=== PATIENT | female | born 1990 | race Caucasian/White ===

== ENCOUNTER → 2020-06-07 08:06 | Outpatient (BNVA) | payer MEDICAID, SELFPAY | PROVIDERS: PCP Family Medicine; Visit Provider Surgery | DX: E66.9 Obesity, unspecified (principal); Z68.36 Body mass index [BMI] 36.0-36.9, adult; Z71.3 Dietary counseling and surveillance | CPT/HCPCS: 99202 ==

== ENCOUNTER 2020-06-15 09:33 | Outpatient (REF) | payer MEDICAID, SELFPAY ==
--- NOTE | ~2020-06-15 | FL_ITS ---
EXAMINATION: XR GI SERIES CLINICAL INFORMATION: Obesity COMPARISON: None TECHNIQUE: Upper GI was performed using thin and thick barium and effervescent granules. FINDINGS: Esophageal motility is normal. There is significant gastroesophageal reflux. There is a small sliding-type hiatal hernia. There are postoperative changes following gastric bypass. The remaining stomach appears small. No ulcer or mass is seen. FLUOROSCOPY TIME: 1.1 minutes DOSE AREA PRODUCT: 15 hoang per centimeter squared. 22 saved fluoroscopic images. FL/FL upper GI series IMPRESSION: Postoperative change following gastric bypass. Significant gastroesophageal reflux. Small sliding-type hiatal hernia.
--- NOTE | ~2020-06-15 | US_ITS ---
EXAMINATION: CHEST X-RAY CLINICAL INFORMATION: Obesity COMPARISON: None TECHNIQUE: Two-view chest FINDINGS: The cardiac and mediastinal contours are normal. The lungs are clear. There is no pleural effusion or pneumothorax. Bony structures are normal. US/US abdomen comp w elastography IMPRESSION: Normal chest. EXAMINATION: US COMPLETE ABDOMEN WITH LIVER ELASTOGRAPHY CLINICAL INFORMATION: Obesity COMPARISON: None. TECHNIQUE: Real-time imaging of the abdominal viscera. Noninvasive ultrasound liver fibrosis assessment is performed using Wilfrido ElastPQ point quantification shear wave elastography (pSWE) with a 5 MHz transducer. Multiple elastography samples are obtained. FINDINGS: PANCREAS: Not well visualized due to bowel gas. ABDOMINAL AORTA: The proximal and distal aortic segments are normal in caliber. The mid abdominal aorta is not well visualized. INFERIOR VENA CAVA: Visualized portions are normal. LIVER: Liver echotexture is increased. The liver is normal in size and contour. No focal lesion or intrahepatic biliary duct dilatation. The right lobe measures 15 cm in length. The left lobe measures 10 cm in length. Main portal vein is patent with appropriate hepatopedal flow. Shear wave elastography provides a median stiffness of 1.3 m/s (reference: normal median stiffness is 0.81 - 1.22 m/s). The IQR/median stiffness to assess sampling precision is 0.12 (reference: optimal IQR/median stiffness is under 0.3). GALLBLADDER: Normal. The gallbladder is physiologically distended without evidence of stones, sludge, polyps, wall thickening or pericholecystic fluid. COMMON BILE DUCT: Normal in caliber measuring 0.3 cm in diameter. RIGHT KIDNEY: Normal. No hydronephrosis. No renal calculi or focal parenchymal lesions. The kidney measures 11 cm in maximum dimension. LEFT KIDNEY: Not well visualized. No hydronephrosis. No renal calculi or focal parenchymal lesions. The kidney measures 9.4 cm in maximum dimension. SPLEEN: Normal. The spleen measures 6.8 cm in maximum dimension. FREE FLUID: None. IMPRESSION: 1. Impression: Echogenic liver. Limited visualization of the pancreas, mid abdominal aorta and left kidney. 2. Elastography: High probability of normal liver stiffness.
--- NOTE | 2020-06-15 09:41 | ECG_ITS ---
Test Reason : MORBID OBESITY Blood Pressure : / mmHG Vent. Rate : 091 BPM Atrial Rate : 091 BPM P-R Int : 182 ms QRS Dur : 130 ms QT Int : 388 ms P-R-T Axes : 048 071 041 degrees QTc Int : 477 ms Normal sinus rhythm Right bundle branch block Abnormal ECG No previous ECGs available Referred By: Christopher Bey Electronically Signed By:ELTON CORREA MD
[2020-06-15 11:27] LABS: MANUAL DIFF FLAG NO
[2020-06-15 11:38] LABS: Basophils Percent Auto 0.5 % (0-2); Eosinophils Absolute Auto 0.1 X10*3/uL (0.0-0.4); Eosinophils Percent Auto 0.6 % (0-4); Hematocrit 31.9 % (37-47); Hemoglobin 9.4 g/dl (12.0-16.0); Imm Gran Abs Auto 0.03 X10*3/uL (0.00-0.03); Imm Gran Pct Auto 0.4 % (0.0-0.4); Lymphocytes Absolute Auto 2.5 X10*3/uL (1.2-4.9); Lymphocytes Percent Auto 32.6 % (20-40); Mean Corpuscular HGB Conc 29.5 g/dl (31.0-35.0); Mean Corpuscular Hemoglobin 24.2 pg (27.0-33.0); Mean Platelet Volume 9.9 fL (9.4-12.3); Monocytes Absolute Auto 0.5 X10*3/uL (0.1-1.2); Monocytes Percent Auto 6.3 % (2-11); Neutrophils Absolute Auto 4.6 X10*3/uL (2.0-8.3); Neutrophils Percent Auto 59.6 % (45-73); Platelet Count 403 X10*3/uL (160-400); Red Blood Count 3.89 X10*6/uL (4.20-5.50); Red Cell Distribution Width 16.1 % (11.0-16.0); White Blood Count 7.8 X10*3/uL (4.8-10.8)
[2020-06-15 11:41] LABS: Estimated Average Glucose 100 mg/dL; Hemoglobin A1c % 5.1 %
[2020-06-15 11:52] LABS: Alanine Aminotransferase 13 U/L (0-31); Albumin Level 4.4 g/dL (3.5-5.0); Alkaline Phosphatase 73 U/L (39-117); Anion Gap 14 (12-20); Aspartate Amino Transferase 21 U/L (5-31); Bilirubin Total 0.5 mg/dL (0.0-1.0); Blood Urea Nitrogen 18 mg/dL (9-16); C Reactive Protein 0.03 mg/dL (< or = 0.50); Calcium 8.6 mg/dL (8.4-10.2); Carbon Dioxide 25 mmol/L (22-29); Chloride 109 mmol/L (96-108); Cholesterol 295 mg/dL; Estimated Glomerular Filt Rate > 60; Glucose Random 95 mg/dL (60-115); HDL Cholesterol 67 mg/dL; LDL Cholesterol Calculated 210 mg/dl; Potassium 4.5 mmol/L (3.3-5.1); Sodium 143 mmol/L (135-145); Total Protein 7.8 g/dL (6.5-8.0); Triglycerides 93 mg/dL
[2020-06-15 12:13] LABS: Ferritin 4 ng/mL (10-122); TSH reflex Free T4 1.82 uIU/mL (0.32-4.0); Vitamin D 25-OH Total 6.9 ng/mL (>30)
[2020-06-15 12:31] LABS: Vitamin B12 < 146 pg/mL (200-900)
[2020-06-16 15:01] LABS: H Pylori Breath Test NOT DETECTED (NOT DETECTED)
[2020-06-16 15:01] LABS: Calcium (PTHI) 9.3 mg/dL (8.6-10.2); PTHI 121 pg/mL (14-64)
[2020-06-16 18:12] LABS: Insulin Level Total 6.5 uIU/mL
[2020-06-18 01:52] LABS: Zinc 76 mcg/dL (60-130)
[2020-06-19 12:16] LABS: Vitamin A 37 mcg/dL (38-98)
[2020-06-19 13:06] LABS: Vitamin B1 11 nmol/L (8-30)
== END 2020-06-15 09:34 | disposition home or self-care (01) ==
LOC: HO.US 09:33
PROVIDERS: Referring Provider Physician Assistant; Visit Provider Surgery
DX: Z01.818 Encounter for other preprocedural examination (principal); E66.01 Morbid (severe) obesity due to excess calories; Z68.36 Body mass index [BMI] 36.0-36.9, adult; K21.9 Gastro-esophageal reflux disease without esophagitis
CPT/HCPCS: 36415; 71046; 74240; 76705; 76981; 80053; 80061; 82306; 82607; 82728; 82746; 83013; 83036; 83525; 83970; 84425; 84443; 84590; 84630; 85025; 86140; 93005; 99211

== ENCOUNTER 2020-06-29 09:25 | Outpatient (REF) | payer MEDICAID, SELFPAY | END 2020-06-29 09:26 | disposition home or self-care (01) | LOC: HO.CT 09:25 | PROVIDERS: Visit Provider Surgery | DX: Z13.89 Encounter for screening for other disorder (principal) ==

== ENCOUNTER 2020-06-29 09:44 | Day surgery (SDC) | payer MEDICAID, SELFPAY ==
[2020-06-22 11:52] VITALS: BMI 36.3
--- NOTE | 2020-06-24 14:38 | HO.ANESPROP2 ---
Documented by User: Brittney Lemon 06/24/20 14:39 HPI - Anesthesia Eval Consult details Narrative: 30yo F for Upper Endoscopy s/p gastric bypass PMFSH Active Problems Active Problems: All Active Problems (Updated 06/22/20 @ 13:52 by Heather Cazares LCSW) Adjustment disorder, unspecified (Acute) Preop testing (Acute) Anxiety (Acute) Back pain (Acute) BMI 36.0-36.9,adult (Acute) Obesity (Acute) Past Medical History Medical History Anxiety Back pain Family History Family History Mother Hypertension Stroke Father No problems noted. Brother No problems noted. Brother No problems noted. Brother No problems noted. Brother No problems noted. Sister No problems noted. Sister No problems noted. Daughter No problems noted. Surgical History Surgical History Hx of gastric bypass S/P panniculectomy Social History Social History Alcohol intake: never Smoking Status: Never smoker Use of substances other than those prescribed or required for medical reasons: No Advance Directives Information Provided: No Meds Allergies Allergy/AdvReac Type Severity Reaction Status Date / Time No Known Allergies Allergy Verified 06/07/20 14:24 Home Medications Medication Instructions Recorded Confirmed Last Taken Type melatonin 3 mg capsule 3 mg PO BEDTIME PRN 06/07/20 06/22/20 Unknown History Exam Exam Date and Time: June 24, 2020 1438 Height,Weight and Vital Signs: Height 5 ft 4.5 in Weight 97.579 kg Narrative Narrative: EKG 06/2020 Vent. Rate : 091 BPM Atrial Rate : 091 BPM P-R Int : 182 ms QRS Dur : 130 ms QT Int : 388 ms P-R-T Axes : 048 071 041 degrees QTc Int : 477 ms Normal sinus rhythm Right bundle branch block Abnormal ECG No previous ECGs available Assessment and Plan Assessment Anesthesia Assessment: Chart Reviewed Documented by User: Santiago Vanegas 06/29/20 12:29 PMFSH Past Medical History Medical History Anxiety Back pain Family History Family History Mother Hypertension Stroke Father No problems noted. Brother No problems noted. Brother No problems noted. Brother No problems noted. Brother No problems noted. Sister No problems noted. Sister No problems noted. Daughter No problems noted. Surgical History Surgical History Hx of gastric bypass S/P panniculectomy Social History Social History Alcohol intake: never Smoking Status: Never smoker Use of substances other than those prescribed or required for medical reasons: No Advance Directives Information Provided: No Meds Allergies Allergy/AdvReac Type Severity Reaction Status Date / Time No Known Allergies Allergy Verified 06/07/20 14:24 Home Medications Medication Instructions Recorded Confirmed Last Taken Type melatonin 3 mg capsule 3 mg PO BEDTIME PRN 06/07/20 06/22/20 Unknown History Exam Airway Mallampati Class: II TM Dist: >3cm Neck ROM: Full
--- NOTE | 2020-06-28 22:37 | MHC.SHP ---
Pre-Procedural Eval Section A The patient is an INPATIENT: No The History & Physical has been completed within 30 days and I have reviewed it.: Yes Section B Chief Complaint: bariatric surgery Details of Present Illness: GERD Relevant Family History (Specify if Yes): No Relevant Social History: None Present Medications: see Short Stay Collaborative assessment History of Previous Operations: Relevant previous surgery/procedure and date(s) (gastric bypass) Allergies: Allergies Allergy/AdvReac Type Severity Reaction Status Date / Time No Known Allergies Allergy Verified 06/07/20 14:24 Review of Systems Sugical H&P ROS: Negative: Constitution, Cardiovascular, Respiratory, Neurological, Psychiatric, Hem-Onc, Allergic/Immunologic, Gastrointestinal, Genitourinary, Musculoskeletal, Integumentary, Endocrine and Eyes/Ears/Nose/Throat Plan Diagnosis/Plan: Unchanged (EGD with biopsies to assess GERD and gastric bypass anatomy) I have reviewed the history and physical and performed a pertinent physical examination on my patient. No changes have occurred unless specified.
--- NOTE | ~2020-06-29 | CT_ITS ---
EXAMINATION: CT ABDOMEN AND PELVIS WITH CONTRAST CLINICAL INFORMATION: Right upper quadrant pain. Status post gastric surgery. COMPARISON: Upper GI series and abdominal ultrasound dated 06/15/2020. TECHNIQUE: Multidetector volumetric images were obtained from the superior aspect of the liver through the pubic symphysis following administration 85 mL of Omnipaque 350 intravenous contrast. Sagittal and coronal reformatted images were obtained on the technologist's workstation. Oral contrast: Yes This CT examination was performed using dose optimization techniques as appropriate, variously including the following: *Automated exposure control *Adjustment of mA and/or kV according to patient size (this includes techniques or standardized protocols for targeted exams where dose is matched to indication/reason for exam; i.e. extremities or head) *Use of iterative reconstruction technique DLP: 646 mGy-cm FINDINGS: LUNG BASES: The visualized lung bases are unremarkable. LIVER, GALLBLADDER, AND BILIARY TREE: The liver is normal in size, shape, and attenuation. No focal hepatic lesion or biliary ductal dilatation is present. The gallbladder is unremarkable with no evidence of radiopaque gallstones, gallbladder wall thickening, or obvious pericholecystic inflammatory changes. PANCREAS: Unremarkable. SPLEEN: Unremarkable. ADRENAL GLANDS: Unremarkable. KIDNEYS AND URETERS: The kidneys are normal in size, shape, and attenuation. No hydronephrosis, hydroureter, or calculi seen. No perinephric stranding. BLADDER: Nondistended and unremarkable. GASTROINTESTINAL TRACT: Postsurgical change consistent with Patricio-en-Y gastric bypass. Unremarkable gastrojejunal and jejunojejunal anastomoses. No evidence of leak or obstruction. No bowel wall thickening or associated inflammatory change. Oral contrast reaches the colon. No small or large bowel obstruction. Unremarkable appendix. PERITONEAL CAVITY: No intra-abdominal free air or free fluid. No intra-abdominal mass or organized fluid collection/abscess formation. ABDOMINAL WALL: Anterior abdominal wall postsurgical change. No significant abdominal wall hernia. There are multiple peripherally calcified and central fat density foci in the perirectal region, likely representing small foci of fat necrosis. No associated inflammatory change to suggest acute process. LYMPH NODES: No significant lymphadenopathy. VASCULAR: Unremarkable. PELVIC VISCERA: Right ovarian dominant follicle measuring 1.9 cm. Findings are not clinically significant and no follow-up imaging is recommended. OSSEOUS STRUCTURES: No acute osseous abnormality. CT/CT abdomen pelvis w con IMPRESSION: 1. Status post Patricio-en-Y gastric bypass. Unremarkable gastrojejunal and jejunojejunal anastomoses. No evidence of leak or obstruction. No bowel wall thickening or associated inflammatory change. Unremarkable appendix. 2. No intra-abdominal mass, lymphadenopathy, or ascites.
[2020-06-29 09:57] VITALS: BP 118/72; PULSE 93; RESP 16; TEMP 36.7; O2SAT 100
[2020-06-29 10:10] LABS: UPreg QC Valid YES; Urine Pregnancy NEGATIVE (NEGATIVE)
[2020-06-29 10:16] LABS: COVID-19 Test Negative (Negative)
[2020-06-29] MEDS: Lactated Ringers 1,000 ML 80 ML IVCONT (10:17)
--- NOTE | 2020-06-29 12:10 | PM.OP ---
Brief Operative Note Date of Service: 06/29/20 Pre-op diagnosis: GERD Post-op diagnosis: same (and retained endoscopic sutures) Procedure: PROCEDURE DATE: 06/29/2020 PREOPERATIVE DIAGNOSIS: GERD, s/p gastric bypass POSTOPERATIVE DIAGNOSIS: Same as above. 1) retained endoscopic sutures, 2) normal post-bypass anatomy PROCEDURE: [id number] with biopsies Surgeon: Onur Bey M.D.. Ph.D. Cumulative Effects Analyst: None Anesthesia: IV sedation Estimated blood loss: Minimal FINDINGS AND PROCEDURE: OPERATIVE INDICATIONS: The patient is a 30 year old female known to me who underwent a laparoscopic gastric bypass elsewhere. The patient had inadequate weight loss so far and has GERD. Based on this information I recommended an upper endoscopy to evaluate the patient's symptoms. Risks and complications of the surgery were discussed with the patient in advance particularly the possibility of perforation or bleeding that may require surgical intervention. The patient understood the risks and was in agreement with the plan. PROCEDURE: After informed consent was obtained by the patient, the patient was transferred to the Operating Room and was placed in the supine position. After successful induction of IV sedation, a mouth block was placed and the patient was placed in the left lateral decubitus position. An upper endoscopy was performed next, the oropharynx and esophagus appeared within the normal limits. There was no hiatal hernia. The z-line was smooth. Two biopsies were obtained from the distal esophagus 2-3 cm proximal to the GE junction and two biopsies from the GE junction. The small pouch was entered, appeared to be of normal size. GEJ was at 39cm from incisors and GJ anastomosis at 44cm from incisors. There were at least 3 endoscopic sutures. There was no gastritis and the gastrojejunostomy was patent. A biopsy was obtained from the gastric pouch. No significant bleeding was noted from any of the biopsy sites. There was no anastomotic ulcer. At that point the scope was advanced into the proximal small intestine (proximal Patricio limb) which appeared to be normal as well. The Patricio limb and the pouch were decompressed and the scope was withdrawn from the patient's mouth. The patient was awaken and was transferred in stable condition to the Recovery Room for further care. I was present and performed all steps of the procedure. There were no residents to assist with this case. Onur Bey M.D., Ph.D. Surgeon: Christopher Bey MD Anesthesia: MAC Estimated blood loss (mL): 0 IV fluids (mL): 500 Urine output (mL): 0 (No Gardner to record) Pathology: other (1) GEJ x2, distal esophagus x2, 3) gastric pouch x1) Condition: stable Disposition: PACU
[2020-06-29 13:05] VITALS: BP 102/70; PULSE 102; RESP 14; TEMP 36.3; O2SAT 100
[2020-06-29 13:20] VITALS: BP 123/72; PULSE 96; RESP 16; O2SAT 100
[2020-06-29 13:35] VITALS: BP 127/80; PULSE 94; RESP 18; O2SAT 99
[2020-06-29 14:35] VITALS: BP 119/76; PULSE 96; RESP 18; TEMP 36.2; O2SAT 100
[2020-06-29] MEDS: iohexoL 350 MG/ML 100 ML INFUS..BTL IV (17:02)
== END 2020-06-29 16:55 | disposition home or self-care (01) ==
PROVIDERS: Nurse Practitioner; Visit Provider Surgery
PROC: 0DJ08ZZ Inspection of Upper Intestinal Tract, Via Natural or Artificial Opening Endoscopic (ICD-10-PCS; CPT 43235; principal; 2020-06-29 11:40)
DX: K21.9 Gastro-esophageal reflux disease without esophagitis (principal); Z98.84 Bariatric surgery status; E66.9 Obesity, unspecified; Z68.36 Body mass index [BMI] 36.0-36.9, adult; Z98.890 Other specified postprocedural states; M54.9 Dorsalgia, unspecified; Z79.899 Other long term (current) drug therapy
CPT/HCPCS: 43239; 36415; 74177; 81025; 87635; 88305; 88342; J2405; Q9967

== ENCOUNTER → 2020-06-30 08:26 | Outpatient (BNVA) | payer MEDICAID, SELFPAY | PROVIDERS: Visit Provider Surgery ==

== ENCOUNTER → 2020-07-06 08:09 | Outpatient (BNVA) | payer MEDICAID, SELFPAY | PROVIDERS: PCP Family Medicine; Visit Provider Dietitian, Registered ==

== ENCOUNTER → 2020-07-09 08:18 | Outpatient (REF) | payer MEDICAID, SELFPAY ==
--- NOTE | 2020-07-09 08:23 | CA_ITS ---
Acquisition Time: 2020-07-09 09:00:41 Total Exercise Time: 00:06:51 Test Indications: RBBB, ABN EKG Medications: SEE CHART Protocol: ALISA Max HR: 176 BPM 92% of Pred: 190 BPM Max BP: 152/054 mmHG Max Work Load: 8.2 METS Exercise stress test with exercise 6 min 51 sec of Alisa protocol, achieving 93% MPHR, 8.2 METS, without anginal symptoms, without arrythmia, with normotensive response to exercise, without EKG changes meeting criteria for ischemia. Test reviewed with Dr Galvan. Referred By: Christopher Bey Overread By: TASHI RIVAS
--- NOTE | 2020-07-09 09:07 | CA_ITS ---
Transthoracic Echocardiogram Patient (Last, First, Middle): Shayy Dunn, Gender: Female Date of : 1990 Age: 30 Procedure Date: 07/09/2020 Procedure Type: Transthoracic Echocardiogram Location: OP Height: 165.1 cm Weight: 92.08 kg BSA: 1.99 m2 Heart Rate: bpm BP: 110 / 70 mmHg Ripening Room Attendant: JW Terrell MD: Christopher Bey MD Central Melt Specialist: Camilo Galvan MD Symptoms: R94.31 - Abnormal electrocardiogram [ECG] [EKG] Study Quality: Fair/contrast ECG Rhythm: Sinus Conclusions: - Essentially normal study Findings Procedure Information Contrast agent, definity, is being given per protocol without apparent complications. Left Ventricle Normal left ventricular size, thickness, and systolic function. The visually estimated ejection fraction is between 60-65%. Diastolic function is normal for age. Right Ventricle Normal right ventricular cavity size and systolic function. Atria Both atria are normal in size. Interatrial shunt cannot be excluded. Aortic Valve The aortic valve structure and function is likely normal. There is no aortic valve stenosis. There is no aortic valve regurgitation. Mitral Valve Normal mitral valve structure and function. There is trace mitral valve regurgitation. There is no mitral valve stenosis. Pulmonic Valve The pulmonic valve is likely normal. Tricuspid Valve Likely normal tricuspid valve structure and function. There is trace tricuspid valve regurgitation. Tricuspid regurgitation envelope is inadequate for calculation of right ventricular systolic pressure. Great Vessels All visible segments of the aorta are normal in size. The pulmonary artery was not well visualized. Venous The inferior vena cava was not well visualized. Pericardium/Pleural There is no evidence of pericardial effusion. Prior Study Comparison No prior study available for comparison. Measurements 2D Linear Measurements IVSd: 0.88 0.6-0.9/0.6-1.0 cm LVIDd: 4.16 3.9-5.3/4.2-5.9 cm LVIDd Index: 2.09 2.4-3.2/2.2-3.1 cm/m2 LVIDs: 2.81 2.0-3.6 cm LVPWd: 0.88 0.7-1.1 cm Ao Root: 2.80 2.1-3.5 cm LA Diam: 2.90 2.7-3.8/3.0-4.0 cm LAIDs Index: 1.46 1.5-2.3 cm/m2 LV Mass: 141.34 67-162/88-224 g LV Mass Index: 71.03 43-95/49-115 g/m2 LVOT Diam: 2.00 3.0+(-)1.3 cm Mitral Valve MV Pk E: 1.02 MV PK A: 0.90 MV Decel Time: 151.00 E/A: 1.10 E'Lateral: 11.00 E'Medial: 10.20 E/E' Med: 10.00 E/E' Lat: 9.30 PHT: 44.00 MVA PHT: 5.00 Decel Young: 6.73 Aortic Valve AoV Pk Aime: 1.45 AoV Mn Aime: 0.93 AoV VTI: 0.26 AoV Pk Grad: 8.00 Aov Mn Grad: 4.00 ANISHA Cont.VTI: 2.73 LVOT LVOT Pk Aime: 1.37 LVOT Mn Aime: 0.92 LVOT VTI: 0.23 LVOT Pk Grad: 8.00 LVOT Mn Grad: 4.00 LVOT Diam: 2.00 LVOT Area: 3.14 Diastolic Function MV Pk E: 1.02 MV Pk A: 0.90 E/A: 1.10 E'Medial: 10.20 E/E' Med: 10.00 E' Laterial: 11.00 E/E' Lat: 9.30 Great Vessels Aorta Ao Root-2D: 2.80 2.0-3.7 cm Ao Asc: 2.90 2.1-3.4 cm Ao Arch: 2.70 Updated in Other Vendor System with Status of Final Camilo Galvan MD electronically signed on 07/09/2020 2:29:11 PM with status of Final
== END ==
LOC: HO.CARD 08:18
PROVIDERS: Visit Provider Surgery
DX: Z01.818 Encounter for other preprocedural examination (principal); R06.02 Shortness of breath; I10 Essential (primary) hypertension; I45.10 Unspecified right bundle-branch block; R94.31 Abnormal electrocardiogram [ECG] [EKG]
CPT/HCPCS: 93017; 93018; 93306; Q9957

== ENCOUNTER → 2020-07-19 08:14 | Outpatient (BNVA) | payer MEDICAID, SELFPAY | PROVIDERS: Visit Provider Dietitian, Registered | DX: E66.9 Obesity, unspecified (principal); Z68.32 Body mass index [BMI] 32.0-32.9, adult | CPT/HCPCS: 97802 ==

== ENCOUNTER → 2020-07-26 13:43 | Outpatient (BNVA) | payer MEDICAID, SELFPAY | PROVIDERS: Visit Provider Surgery ==